=== PATIENT | male | born 1945 | race Caucasian/White ===

== ENCOUNTER 2025-05-24 11:14 | Outpatient (CLI) | payer MEDICARE, SELFPAY ==
--- NOTE | 2025-05-24 11:30 | CRLHL7_ITS ---
For Patients: As a result of the Century Cures Act, medical imaging exams and procedure reports are released immediately into your electronic medical record. You may view this report before your referring provider. If you have questions, please contact your health care provider. CLINICAL HISTORY: Diabetic nephropathy COMPARISON: none TECHNIQUE: Castanon scale and color Doppler images were acquired of the kidneys and urinary bladder. FINDINGS: No solid mass or hydronephrosis. Bilateral renal cortical scarring. No renal stone. Normal color Doppler imaging of both kidneys. The right kidney measures 11.8cm in length and the left kidney measures 12.7cm in length. The renal cortex appears of normal thickness. Prevoid bladder volume 129 cc. Postvoid bladder volume 35 cc. Color Doppler images reveal a normal appearance of both ureteral jets. There is no evidence of bladder calculi or diverticula. Calcification within the prostate measures 8 x 6 x 7 millimeters. Prostate measures 4.7 x 3.8 x 4.1 cm. IMPRESSION: No hydronephrosis. Incomplete bladder emptying. Dictated by Holden Wilder MD @ 05/24/2025 12:16:17 PM (Electronically Signed)
== END 2025-05-24 11:15 | disposition home or self-care (01) ==
LOC: US 11:16
PROVIDERS: PCP Student in an Organized Health Care Education/Training Program; Visit Provider Student in an Organized Health Care Education/Training Program
DX: E11.21 Type 2 diabetes mellitus with diabetic nephropathy (principal); N18.2 Chronic kidney disease, stage 2 (mild); I12.9 Hypertensive chronic kidney disease with stage 1 through stage 4 chronic kidney disease, or unspecified chronic kidney disease
CPT/HCPCS: 76770